=== PATIENT | male | born 1930 | race Caucasian/White ===

== ENCOUNTER 2018-08-27 10:07 | Emergency (ER) | payer MEDICARE ==
[~2018-08-27] VITALS: Ht 182.9 cm; Wt 90.9 kg
[2018-08-27] MEDS ORDERED: VITAD1000 PO (10:37)
[2018-08-27] MEDS ORDERED: LISI-660 PO (10:37)
[2018-08-27] MEDS ORDERED: LEVO75 PO (10:37)
[2018-08-27] MEDS ORDERED: METF-960 PO (10:37)
[2018-08-27] MEDS ORDERED: ATOR10TA84 PO (10:37)
[2018-08-27] MEDS ORDERED: ASPI81 PO (10:37)
[2018-08-27] MEDS ORDERED: CITA-106 PO (10:37)
[2018-08-27 11:42] LABS: BASOPHILS % (AUTO) 0.8 % (0.0-2.0); EOSINOPHILS % (AUTO) 4.9 % (1.0-6.0); HEMATOCRIT 41.9 % (41-53); HEMOGLOBIN 13.6 g/dL (13.5-17.5); LYMPHOCYTES # (AUTO) 1.9 K/uL (1.0-4.8); LYMPHOCYTES % (AUTO) 26.6 % (22.0-44.0); MEAN CORPUSCULAR HEMOGLOBIN 28.8 pg (26.0-34.0); MEAN CORPUSCULAR HGB CONC 32.5 G/dL (31.0-37.0); MEAN CORPUSCULAR VOLUME 89 fL (80-100); MONOCYTES # (AUTO) 0.5 K/uL (0.1-1.0); MONOCYTES % (AUTO) 7.7 % (2.0-9.0); NEUTROPHILS # (AUTO) 4.2 K/uL (1.8-7.7); PLATELET COUNT (AUTO) 220 K/uL (150-450); RED BLOOD CELL COUNT(AUTO) 4.73 MIL/uL (4.50-5.90); RED CELL DISTRIBUTION WIDTH 14.3 % (11.5-14.5)
[2018-08-27 11:55] LABS: PROTHROMBIN TIME 10.1 SEC (9.4-11.6)
[2018-08-27 13:31] VITALS: BP 98/54
== END 2018-08-27 13:58 | disposition home or self-care (01) ==
LOC: EMS 10:08
DX: I83.892 Varicose veins of left lower extremity with other complications (principal); E11.9 Type 2 diabetes mellitus without complications; E78.00 Pure hypercholesterolemia, unspecified; E03.9 Hypothyroidism, unspecified; F32.9 Major depressive disorder, single episode, unspecified; Z79.899 Other long term (current) drug therapy; Z79.82 Long term (current) use of aspirin; Z79.84 Long term (current) use of oral hypoglycemic drugs; Z88.0 Allergy status to penicillin